=== PATIENT | female | born 1935 | race Caucasian/White ===

== ENCOUNTER 2018-02-23 10:27 | Observation (INO) ==
--- NOTE | 2018-02-23 10:51 | ED ---
HPI General Chief Complaint: Fall Stated Complaint: Fall Time Seen by Provider: 02/23/18 10:39 Source: patient and EMS Mode of arrival: EMS Limitations: no limitations History of Present Illness MD complaint: Reports fall Onset (ago): day(s) (1) Fall from: standing Fall witnessed: no Place fall occurred: home Loss of consciousness: none Prolonged down time: yes Symptoms prior to fall: Reports none Context: Reports tripped/slipped Location of injury: Reports buttocks (Tailbone) Severity: mild Quality: Reports dull Associated symptoms (after fall): Reports other Related Data Allergies Allergy/AdvReac Type Severity Reaction Status Date / Time azithromycin Allergy Severe throat Verified 02/23/18 16:02 closed ketorolac Allergy Severe Anaphylaxis Verified 02/23/18 16:02 lorazepam Allergy Severe Anaphylaxis Verified 02/23/18 16:02 erythromycin base Allergy Unknown Anaphylaxis Verified 02/23/18 16:02 Review of Systems ROS: all other systems reviewed are negative [facility] Social History Social History Substance History: No History of Abuse Second Hand Smoke Exposure: No Smoking Status: Former smoker How Often Do You Have a Drink Containing Alcohol: Never Recent Travel in [facility] within the Last 8 Weeks: No Recent Out of Country Travel within the Last 8 Weeks: No Exam Const General: cooperative, healthy appearing, comfortable, no acute distress and well developed Orientation: alert, awake and oriented x3 Eyes Alignment and Position: alignment normal and position abnormal Conjunctivae: conjunctivae normal Sclera: sclerae normal EOM: EOM intact bilaterally Neck Neck: normal visual inspection and full ROM Chest Chest: normal inspection of the chest Resp Effort & Inspection: normal respiratory effort and able to speak in complete sentences Auscultation: clear to auscultation bilaterally Cardio Rate: regular rate Rhythm: regular rhythm GI Inspection: normal to inspection Palpation: soft Back/Spine/Pelvis Cervical Spine: cervical ROM normal Thoracic/Lumbar Spine: thoraco-lumbar ROM normal Skin General: no rashes or lesions noted, turgor normal and dry skin Neuro General: alert, awake, oriented x3, moves all extremities and CN's II-XI intact bilaterally Extrem General: normal to inspection and full ROM Psych Appearance: grossly normal Mental Status: mental status grossly normal Speech and Movement: speech and movement normal Mood: congruent mood Affect: normal affect Attitude: cooperative Thought Process: normal Thought Content: normal Judgment: judgment good Course Initial Documented Vital Signs Temperature 97.9 F 02/23/18 10:57 Pulse Rate 72 02/23/18 10:57 Respiratory Rate 14 02/23/18 10:57 Blood Pressure 149/82 H 02/23/18 10:57 Pulse Oximetry 94 L 02/23/18 10:57 Last Documented Vital Signs Temperature 97.9 F 02/23/18 10:57 Pulse Rate 72 02/23/18 10:57 Respiratory Rate 14 02/23/18 10:57 Blood Pressure 149/82 H 02/23/18 10:57 Pulse Oximetry 94 L 02/23/18 10:57 Medical Decision Making MDM Narrative Medical decision making narrative: This patient presents to [facility] post a trip and fall at home yesterday. She landed on her buttocks and comes in complaining with tailbone pain. The patient reports a prolonged downtime of several hours yesterday. She states that she has been too weak to walk since then. EKG, chest x-ray, coccyx x-ray and basic labs including urinalysis and CK to rule out rhabdo have been ordered. This patient will likely need admission in order to be placed in rehab as she lives at home alone and is reportedly too weak to walk. CBC is unremarkable. CMP is unremarkable for any acute abnormalities. CPK and troponin are unremarkable. Chest x-ray is negative. Coccyx x-ray is negative. CT of the pelvis is negative for any acute abnormalities or fracture. Patient reassessed, most of her pain is located to her right buttock/hip. She is unable to ambulate due to weakness in her legs and pain in the hip. She will need to be kept in observation for physical therapy consult. She may need placement to a SNF.. I spoke with Dr. Armstrong [facility] who accepts patient to his service. Medical Screen Exam Complete: Yes Emergency Medical Condition: Yes Differential Diagnosis Differential Diagnosis: Differential diagnosis of back injury includes but is not limited to contusion, muscle strain, ligamentous strain, compression fracture, spinous process fracture Lab Data Result diagrams: 02/23/18 11:10 02/23/18 11:10 Lab Results 02/23/18 02/23/18 02/23/18 Range/Units 11:10 11:10 11:10 WBC 8.2 (4.0-11.0) th/mm3 RBC 4.34 (4.00-5.30) mil/mm3 Hgb 15.5 H (11.6-15.3) gm/dL Hct 45.0 (35.0-46.0) % MCV 103.8 H (80.0-100.0) fL MCH 35.6 H (27.0-34.0) pg MCHC 34.3 (32.0-36.0) % RDW 13.6 (11.6-17.2) % Plt Count 96 L (150-450) th/mm3 MPV 9.7 (7.0-11.0) fL Prelim Diff (Auto) Slide review pending Neut % (Auto) 58.7 (16.0-70.0) % Lymph % (Auto) 26.0 (9.0-44.0) % [place] % (Auto) 7.9 (0.0-8.0) % Eos % (Auto) 6.4 H (0.0-4.0) % Baso % (Auto) 1.0 (0.0-2.0) % Neut # (Auto) 4.8 (1.8-7.7) th/mm3 Lymph # (Auto) 2.1 (1.0-4.8) th/mm3 [place] # (Auto) 0.7 (0.0-0.9) th/mm3 Eos # (Auto) 0.5 H (0.0-0.4) th/mm3 Baso # (Auto) 0.1 (0.0-0.2) th/mm3 WBC Differential . Diff Scan Auto diff confirmed Differential Comment . Platelet Estimate Low L (Normal) Platelet Morphology Normal (Normal) Ovalocytes 1+ H (None) Sodium 141 (136-145) meq/L Potassium 4.3 (3.5-5.1) meq/L Chloride 107 (98-107) meq/L Carbon Dioxide 30.5 (21.0-32.0) meq/L Anion Gap 4 L (5-15) meq/L BUN 12 (7-18) mg/dL Creatinine 0.60 (0.50-1.00) mg/dL Estimated GFR Greater than 89 (>89) mL/min Random Glucose 108 H (74-106) mg/dL Calcium 8.3 L (8.5-10.1) mg/dL Total Bilirubin 1.6 H (0.2-1.0) mg/dL AST 53 H (15-37) U/L ALT 21 (10-53) U/L Alkaline Phosphatase 116 (45-117) U/L Total Creatine Kinase 52 Cancelled (26-192) U/L Troponin I 0.02 (0.02-0.05) ng/mL Total Protein 7.4 (6.4-8.2) g/dL Albumin 2.7 L (3.4-5.0) g/dL Urine Color (Yellw/Straw) Urine Clarity (Clear) Urine pH (5.0-8.5) Ur Specific [place] (1.002-1.035) Urine Protein (Neg-Trace) mg/dL Urine Glucose (UA) (Negative) mg/dL Urine Ketones (Negative) mg/dL Urine Occult Blood (Negative) Urine Nitrate (Negative) Urine Bilirubin (Negative) Urine Urobilinogen (Less than 2) mg/dL Ur Leukocyte Esterase (Negative) Urine RBC (0-3) /hpf Urine WBC (0-5) /hpf Ur Squamous Epith Cells (0-5) /hpf Micro UA Comment Ur Microscopic Review Urine Culture Comments 02/23/18 Range/Units 14:20 WBC (4.0-11.0) th/mm3 RBC (4.00-5.30) mil/mm3 Hgb (11.6-15.3) gm/dL Hct (35.0-46.0) % MCV (80.0-100.0) fL MCH (27.0-34.0) pg MCHC (32.0-36.0) % RDW (11.6-17.2) % Plt Count (150-450) th/mm3 MPV (7.0-11.0) fL Prelim Diff (Auto) Neut % (Auto) (16.0-70.0) % Lymph % (Auto) (9.0-44.0) % [place] % (Auto) (0.0-8.0) % Eos % (Auto) (0.0-4.0) % Baso % (Auto) (0.0-2.0) % Neut # (Auto) (1.8-7.7) th/mm3 Lymph # (Auto) (1.0-4.8) th/mm3 [place] # (Auto) (0.0-0.9) th/mm3 Eos # (Auto) (0.0-0.4) th/mm3 Baso # (Auto) (0.0-0.2) th/mm3 WBC Differential Diff Scan Differential Comment Platelet Estimate (Normal) Platelet Morphology (Normal) Ovalocytes (None) Sodium (136-145) meq/L Potassium (3.5-5.1) meq/L Chloride (98-107) meq/L Carbon Dioxide (21.0-32.0) meq/L Anion Gap (5-15) meq/L BUN (7-18) mg/dL Creatinine (0.50-1.00) mg/dL Estimated GFR (>89) mL/min Random Glucose (74-106) mg/dL Calcium (8.5-10.1) mg/dL Total Bilirubin (0.2-1.0) mg/dL AST (15-37) U/L ALT (10-53) U/L Alkaline Phosphatase (45-117) U/L Total Creatine Kinase (26-192) U/L Troponin I (0.02-0.05) ng/mL Total Protein (6.4-8.2) g/dL Albumin (3.4-5.0) g/dL Urine Color Lynn (Yellw/Straw) Urine Clarity Hazy H (Clear) Urine pH 6.0 (5.0-8.5) Ur Specific [place] 1.021 (1.002-1.035) Urine Protein Negative (Neg-Trace) mg/dL Urine Glucose (UA) Negative (Negative) mg/dL Urine Ketones Trace H (Negative) mg/dL Urine Occult Blood Small H (Negative) Urine Nitrate Negative (Negative) Urine Bilirubin Negative (Negative) Urine Urobilinogen 2.0 H (Less than 2) mg/dL Ur Leukocyte Esterase Trace H (Negative) Urine RBC 24 H (0-3) /hpf Urine WBC 6 H (0-5) /hpf Ur Squamous Epith Cells 4 (0-5) /hpf Micro UA Comment Culture not ind Ur Microscopic Review Microscopic reviewed Urine Culture Comments Culture not ind Imaging Data Radiologist's impression: Chest X-Ray 02/23/18 10:40 CONCLUSION: The lungs are clear. Coccyx X-Ray 02/23/18 10:40 CONCLUSION: Negative for fracture Pelvis CT 02/23/18 12:40 CONCLUSION: 1. Diverticular disease of the sigmoid without diverticulitis. 2. No acute fracture. Discharge Plan Discharge Disposition Patient Disposition: ED Admit(ED Internal Use Only) Discharge Condition Condition: Stable Discharge Order Discharge Orders: ED Use Only Admit Order (Routine); Ordered 02/23/18 Ordered By: Jody Armstrong Discharge Details Diagnosis: Inability to ambulate due to hip, Weakness, Fall Physicians Team ED Provider: Aleena Skelton ED Midlevel Provider: Jody Armstrong Primary Care Provider: UNKNOWN, Attending Provider: Asa Armstrong Status ED Status: Admitted Observation Patient
[2018-02-23 11:56] LABS: Baso # (Auto) 0.1 th/mm3 (0.0-0.2); Eos # (Auto) 0.5 th/mm3 (0.0-0.4); Eos % (Auto) 6.4 % (0.0-4.0); Hemoglobin 15.5 gm/dL (11.6-15.3); Lymph # (Auto) 2.1 th/mm3 (1.0-4.8); Mean Corpuscular HGB Conc 34.3 % (32.0-36.0); Mean Corpuscular Hemoglobin 35.6 pg (27.0-34.0); Mean Corpuscular Volume 103.8 fL (80.0-100.0); Mean Platelet Volume 9.7 fL (7.0-11.0); Mono # (Auto) 0.7 th/mm3 (0.0-0.9); Mono % (Auto) 7.9 % (0.0-8.0); Neut # (Auto) 4.8 th/mm3 (1.8-7.7); Neut % (Auto) 58.7 % (16.0-70.0); Platelet Count 96 th/mm3 (150-450); Red Blood Count 4.34 mil/mm3 (4.00-5.30); Red Cell Distribution Width 13.6 % (11.6-17.2); White Blood Count 8.2 th/mm3 (4.0-11.0)
--- NOTE | 2018-02-23 12:12 | XR ---
EXAM DATE: 02/23/2018 12:10 PM EST AGE/SEX: 82 years / Female INDICATIONS: Fell yesterday. CLINICAL DATA: This is the patient's initial encounter. Patient reports that signs and symptoms have been present for 2 days and indicates a pain score of 0/10. MEDICAL/SURGICAL HISTORY: None. None. COMPARISON: [facility], CHEST SINGLE AP, 03/22/2012. . FINDINGS: A single AP view of the chest demonstrates the lungs to be symmetrically aerated without evidence of mass, infiltrate or effusion. The cardiomediastinal contours are unremarkable. Osseous structures a re intact. CONCLUSION: The lungs are clear. Electronically signed by: Reyes Hancock MD Board Certified Radiologist 02/23/2018 12:10 PM EST
[2018-02-23 12:13] LABS: Alanine Aminotransferase 21 U/L (10-53); Albumin 2.7 g/dL (3.4-5.0); Anion Gap 4 meq/L (5-15); Aspartate Aminotransferase 53 U/L (15-37); Blood Urea Nitrogen 12 mg/dL (7-18); Calcium 8.3 mg/dL (8.5-10.1); Carbon Dioxide 30.5 meq/L (21.0-32.0); Chloride 107 meq/L (98-107); Glomerular Filtration Rate Greater Than 89 mL/min (>89); Glucose,Random 108 mg/dL (74-106); Potassium 4.3 meq/L (3.5-5.1); Sodium 141 meq/L (136-145)
--- NOTE | 2018-02-23 12:16 | XR ---
EXAM DATE: 02/23/2018 12:12 PM EST AGE/SEX: 82 years / Female INDICATIONS: Fell yesterday. CLINICAL DATA: This is the patient's initial encounter. Patient reports that signs and symptoms have been present for 2 days and indicates a pain score of 10/10. MEDICAL/SURGICAL HISTORY: None. None. COMPARISON: No prior exams available for comparison. FINDINGS: Two view examination of the coccyx demonstrates no evidence of fracture or dislocation. CONCLUSION: Negative for fracture Electronically signed by: Satnam Moon MD Board Certified Radiologist 02/23/2018 12:15 PM EST
[2018-02-23 12:17] LABS: Alkaline Phosphatase 116 U/L (45-117); Total Protein 7.4 g/dL (6.4-8.2); Troponin I 0.02 ng/mL (0.02-0.05)
[2018-02-23 12:23] LABS: Creatine Kinase 52 U/L (26-192)
[2018-02-23 12:35] LABS: Ovalocytes 1+; Platelet Morphology Normal (Normal)
--- NOTE | 2018-02-23 14:28 | CT ---
EXAM DATE: 02/23/2018 1:55 PM EST AGE/SEX: 82 years / Female INDICATIONS: Trauma, fall. CLINICAL DATA: This is the patient's initial encounter. Patient reports that signs and symptoms have been present for 1 day and indicates a pain score of 7/10. MEDICAL/SURGICAL HISTORY: None. None. RADIATION DOSE: 24.07 CTDI (mGy) COMPARISON: No prior exams available for comparison. TECHNIQUE: Multiple contiguous axial images were obtained through the pelvis without contrast. Imag es were obtained using multiple row detector helical technique. . Using automated exposure control an d adjustment of the mA and/or kV according to patient size, radiation dose was kept as low as reasona christopher achievable to obtain optimal diagnostic quality images. DICOM format image data is available konrad ctronically for review and comparison. FINDINGS: Bowel/Mesentery: Diverticular disease of the sigmoid colon without diverticulitis. Bladder: Contours are smooth. Retroperitoneum: No evidence of deep pelvic adenopathy. Reproductive Organs: No abnormal masses or calcifications seen. Inguinal: The inguinal region is unremarkable without evidence of adenopathy. Bony Structures: Unremarkable. CONCLUSION: 1. Diverticular disease of the sigmoid without diverticulitis. 2. No acute fracture. Electronically signed by: Edgar Masters MD Board Certified Radiologist 02/23/2018 2:27 PM EST
[2018-02-23 14:35] LABS: Bilirubin,Urine Negative (Negative); Clarity,Urine Hazy (Clear); Color,Urine Amber (Yellw/Straw); Glucose,Urine (UA) Negative (Negative); Leukocyte Esterase,Urine Trace (Negative); Nitrite,Urine Negative (Negative); Specific Gravity,Urine 1.021 (1.002-1.035); Squamous Epithelial Cell,Urine 4 /hpf (0-5)
[2018-02-23] MEDS ORDERED: Acetaminophen 325 MG Tablet PO PRN (15:09)
--- NOTE | 2018-02-23 15:52 | P.HPIM ---
History of Present Illness Primary Care Physician: UNKNOWN History of Present Illness: This is an 82-year-old female with a history of osteo-arthritis who presents with right sacroiliac joint pain following a fall at home. The fall occurred in her kitchen and she reached back to sit in a rolling chair but ended up pushing the chair back and sitting onto the floor. She underwent imaging studies including a CT of the pelvis and hips which showed no evidence of hip or pelvic fracture. She reports no pain in her lower back and both the ER physicians examined my own have demonstrated no pain with lumbovertebral palpation. She would like to go home but she is unable to walk. She denies any recent fevers, denies urinary symptoms, denies cough. She denies chest pain or palpitations. She denies nausea vomiting or diarrhea. Review of Systems Review of Systems: all other systems reviewed are negative [facility] Social History Social History Substance History: No History of Abuse Second Hand Smoke Exposure: No Smoking Status: Former smoker How Often Do You Have a Drink Containing Alcohol: Never Recent Travel in [facility] within the Last 8 Weeks: No Recent Out of Country Travel within the Last 8 Weeks: No Immunization History Tetanus Immunization: Unsure Medications and Allergies Allergies Allergy/AdvReac Type Severity Reaction Status Date / Time azithromycin Allergy Severe throat Unverified 10/01/16 22:25 closed ketorolac Allergy Severe Unverified 10/01/16 22:25 lorazepam Allergy Severe Unverified 10/01/16 22:25 erythromycin base Allergy Unknown Unverified 10/01/16 22:25 Active Medications: Active Medications Acetaminophen (Tylenol) 650 mg PO Q4H PRN PRN Reason: Temp > 100.4 Methylprednisolone Sodium Succinate (Solumedrol Inj) 125 mg IV.PUSH ONCE ONE Stop: 02/23/18 17:01 Ondansetron HCl (Zofran Inj) 4 mg IV.PUSH Q6H PRN PRN Reason: NAUSEA OR VOMITING Sennosides (Senokot) 17.2 mg PO Q12H PRN PRN Reason: Moderate Constipation Sodium Chloride (Ns Flush) 2 ml IV.FLUSH BID YASMIN Sodium Chloride (Ns Flush) 2 ml IV.FLUSH PRN PRN PRN Reason: FLUSH AFTER USING IV ACCESS Physical Exam Vital signs: Last Vital Signs Temp 97.9 F 02/23/18 10:57 Pulse 72 02/23/18 10:57 Resp 14 02/23/18 10:57 BP 149/82 H 02/23/18 10:57 Pulse Ox 94 L 02/23/18 10:57 Intake & Output 02/21/18 02/22/18 02/23/18 02/24/18 06:59 06:59 06:59 06:59 Weight 76.204 kg Narrative: GENERAL: AAOx3, no acute distress, adequate nutrition, generally weak SKIN: Warm and dry, no rashes. HEAD: Atraumatic. Normocephalic. EYES: Pupils equal, round, reactive to light. No scleral icterus. No injection or drainage. ENT: No nasal bleeding or discharge. Moist mucous membranes. Nonerythematous oropharynx. NECK: Trachea midline. No JVD. Thyroid size within normal limits. CARDIOVASCULAR: Regular rate and rhythm. 2/6 systolic ejection murmur, no gallops, no rubs. RESPIRATORY: Clear and equal to auscultation bilaterally. No crackles, no wheezes. No accessory muscle use. GASTROINTESTINAL: Abdomen soft, non-tender, nondistended, normal active bowel sounds. Hepatic and splenic margins not palpable. MUSCULOSKELETAL: Extremities without clubbing or cyanosis. No obvious deformities. No edema., No lumbar tenderness to palpation. Tender right sacroiliac joint. NEUROLOGICAL: Awake and alert. No obvious cranial nerve deficits. Motor grossly within normal limits. No focal deficits. Five out of 5 muscle strength in the arms and legs. Normal speech. PSYCHIATRIC: Appropriate mood and affect; insight and judgment normal. Results Labs CBC & Chem 7: 02/23/18 11:10 02/23/18 11:10 Imaging Impressions Chest X-Ray 02/23/18 10:40 CONCLUSION: The lungs are clear. Coccyx X-Ray 02/23/18 10:40 CONCLUSION: Negative for fracture Pelvis CT 02/23/18 12:40 CONCLUSION: 1. Diverticular disease of the sigmoid without diverticulitis. 2. No acute fracture. Caprini VTE Risk Assessment Caprini VTE Risk Assessment: Moderate/High Risk (score >= 2) Caprini Risk Assessment Model: Point Value = 1 Point Value = 2 Point Value = 3 Point Value = 5 Age 41-60 Minor surgery BMI > 25 kg/m2 Swollen legs Varicose veins or History of unexplained or recurrent spontaneous Oral contraceptives or hormone replacement Sepsis (< 1 month) Serious lung disease, including pneumonia (< 1 month) Abnormal pulmonary function Acute myocardial infarction Congestive heart failure (< 1 month) History of inflammatory bowel disease Medical patient at bed rest Age 61-74 Arthroscopic surgery Major open surgery (> 45 min) Laparoscopic surgery (> 45 min) Malignancy Confined to bed (> 72 hours) Immobilizing plaster cast Central venous access Age >= 75 History of VTE Family history of VTE Factor V Leiden Prothrombin [id number] Lupus anticoagulant Anticardiolipin antibodies Elevated serum homocysteine Heparin-induced thrombocytopenia Other congenital or acquired thrombophilia Stroke (< 1 month) Elective arthroplasty Hip, pelvis, or leg fracture Acute spinal cord injury (< 1 month) Prophylaxis Regimen: Total Risk Factor Score Risk Level Prophylaxis Regimen 0-1 Low Early ambulation 2 Moderate Order ONE of the following: *Sequential Compression Device (SCD) *Heparin 5000 units SQ BID 3-4 Higher Order ONE of the following medications: *Heparin 5000 units SQ TID *Enoxaparin/Lovenox 40 mg SQ daily (WT < 150 kg, CrCl > 30 mL/min) *Enoxaparin/Lovenox 30 mg SQ daily (WT < 150 kg, CrCl > 10-29 mL/min) *Enoxaparin/Lovenox 30 mg SQ BID (WT < 150 kg, CrCl > 30 mL/min) AND/OR *Sequential Compression Device (SCD) 5 or more Highest Order ONE of the following medications: *Heparin 5000 units SQ TID (Preferred with Epidurals) *Enoxaparin/Lovenox 40 mg SQ daily (WT < 150 kg, CrCl > 30 mL/min) *Enoxaparin/Lovenox 30 mg SQ daily (WT < 150 kg, CrCl > 10-29 mL/min) *Enoxaparin/Lovenox 30 mg SQ BID (WT < 150 kg, CrCl > 30 mL/min) AND *Sequential Compression Device (SCD) Assessment and Plan Plan Fall at home, sacroiliitis, nonambulatory Fortunately no fractures on her hip or pelvis She is still unable to ambulate due to inflammation in her right sacroiliac joint Give single dose of Solu-Medrol 125 mg x1 Reevaluate in the a.m., physical therapy consulted to assist with ambulation and evaluation DVT prophylaxis SCDs overnight
[2018-02-23] MEDS ORDERED: MethylPREDNISolone Sod Succinate Inj 125 MG/2 ML Vial IV.PUSH ONE (17:00)
[2018-02-24 07:38] LABS: Baso % (Auto) 0.2 % (0.0-2.0); Lymph # (Auto) 1.4 th/mm3 (1.0-4.8); Lymph % (Auto) 23.4 % (9.0-44.0); Mean Corpuscular HGB Conc 34.8 % (32.0-36.0); Mean Corpuscular Hemoglobin 35.4 pg (27.0-34.0); Mean Platelet Volume 9.9 fL (7.0-11.0); Mono # (Auto) 0.1 th/mm3 (0.0-0.9); Mono % (Auto) 2.2 % (0.0-8.0); Neut # (Auto) 4.3 th/mm3 (1.8-7.7); Neut % (Auto) 74.2 % (16.0-70.0); Platelet Count 81 th/mm3 (150-450); Red Blood Count 4.51 mil/mm3 (4.00-5.30); Red Cell Distribution Width 13.5 % (11.6-17.2); White Blood Count 5.8 th/mm3 (4.0-11.0)
[2018-02-24 07:59] LABS: Anion Gap 8 meq/L (5-15); Blood Urea Nitrogen 14 mg/dL (7-18); Calcium 8.6 mg/dL (8.5-10.1); Carbon Dioxide 25.6 meq/L (21.0-32.0); Chloride 107 meq/L (98-107); Glomerular Filtration Rate Greater Than 89 mL/min (>89); Glucose,Random 139 mg/dL (74-106); Potassium 3.7 meq/L (3.5-5.1); Sodium 141 meq/L (136-145)
--- NOTE | 2018-02-24 10:05 | P.PN ---
Subjective Interval history: Follow up for back pain, s/p fall. Patient seen and examined, complains of low back pain. Indicates that the pain is much better, has not been out of bed yet. Denies any chest pain, no shortness of breath. No fever. Indicates that her daughter is coming from [place] to help her, she is a nurse. Physical Exam Vital signs: Vital Signs 02/23/18 10:57 02/23/18 14:00 02/23/18 17:37 Temperature 97.9 F Pulse Rate 72 87 78 Respiratory Rate 14 16 16 Blood Pressure 149/82 H 151/83 H 137/84 Pulse Oximetry 94 L 99 02/23/18 19:54 02/23/18 23:27 02/24/18 03:29 Temperature 97.4 F L 97.6 F 98.1 F Pulse Rate 84 80 84 Respiratory Rate 22 22 20 Blood Pressure 125/83 122/75 118/76 Pulse Oximetry 92 L 92 L 92 L 02/24/18 07:34 02/24/18 07:44 Temperature 98.4 F Pulse Rate 90 Respiratory Rate 20 Blood Pressure 133/76 Pulse Oximetry 92 L 94 L Intake & Output 02/23/18 02/24/18 02/24/18 18:59 06:59 18:59 Intake Total 480 / 480 Output Total 800 / 800 Balance -320 / -320 Weight 76.204 kg Intake: Oral 480 / 480 Output: Urine 800 / 800 Other: # Voids 1 Date of Last Bowel Movement 02/24/18 # Bowel Movements 1 Narrative: GENERAL: AAOx3, no acute distress, adequate nutrition, generally weak SKIN: Warm and dry, no rashes. HEAD: Atraumatic. Normocephalic. EYES: Pupils equal, round, reactive to light. No scleral icterus. No injection or drainage. ENT: No nasal bleeding or discharge. Moist mucous membranes. Nonerythematous oropharynx. NECK: Trachea midline. No JVD. Thyroid size within normal limits. CARDIOVASCULAR: Regular rate and rhythm. 2/6 systolic ejection murmur, no gallops, no rubs. RESPIRATORY: Clear and equal to auscultation bilaterally. No crackles, no wheezes. No accessory muscle use. GASTROINTESTINAL: Abdomen soft, non-tender, nondistended, normal active bowel sounds. Hepatic and splenic margins not palpable. MUSCULOSKELETAL: Extremities without clubbing or cyanosis. No obvious deformities. No edema., No lumbar tenderness to palpation. Tender right sacroiliac joint. NEUROLOGICAL: Awake and alert. No obvious cranial nerve deficits. Motor grossly within normal limits. No focal deficits. Five out of 5 muscle strength in the arms and legs. Normal speech. PSYCHIATRIC: Appropriate mood and affect; insight and judgment normal. Results - Labs CBC & Chem 7: 02/24/18 05:35 02/24/18 05:35 Laboratory Results - last 24 hr 02/23/18 02/23/18 02/23/18 11:10 11:10 11:10 WBC 8.2 RBC 4.34 Hgb 15.5 H Hct 45.0 MCV 103.8 H MCH 35.6 H MCHC 34.3 RDW 13.6 Plt Count 96 L MPV 9.7 Prelim Diff (Auto) Slide review pending Neut % (Auto) 58.7 Lymph % (Auto) 26.0 Armstrong % (Auto) 7.9 Eos % (Auto) 6.4 H Baso % (Auto) 1.0 Neut # (Auto) 4.8 Lymph # (Auto) 2.1 Armstrong # (Auto) 0.7 Eos # (Auto) 0.5 H Baso # (Auto) 0.1 WBC Differential . Diff Scan Auto diff confirmed Differential Comment . Platelet Estimate Low L Platelet Morphology Normal Ovalocytes 1+ H Sodium 141 Potassium 4.3 Chloride 107 Carbon Dioxide 30.5 Anion Gap 4 L BUN 12 Creatinine 0.60 Estimated GFR Greater than 89 Random Glucose 108 H Calcium 8.3 L Total Bilirubin 1.6 H AST 53 H ALT 21 Alkaline Phosphatase 116 Total Creatine Kinase 52 Cancelled Troponin I 0.02 Total Protein 7.4 Albumin 2.7 L Urine Color Urine Clarity Urine pH Ur Specific Dubois Urine Protein Urine Glucose (UA) Urine Ketones Urine Occult Blood Urine Nitrate Urine Bilirubin Urine Urobilinogen Ur Leukocyte Esterase Urine RBC Urine WBC Ur Squamous Epith Cells Micro UA Comment Ur Microscopic Review Urine Culture Comments 02/23/18 02/24/18 02/24/18 14:20 05:35 05:35 WBC 5.8 RBC 4.51 Hgb 16.0 H Hct 46.0 MCV 102.0 H MCH 35.4 H MCHC 34.8 RDW 13.5 Plt Count 81 L MPV 9.9 Prelim Diff (Auto) Slide review pending Neut % (Auto) 74.2 H Lymph % (Auto) 23.4 Armstrong % (Auto) 2.2 Eos % (Auto) 0.0 Baso % (Auto) 0.2 Neut # (Auto) 4.3 Lymph # (Auto) 1.4 Armstrong # (Auto) 0.1 Eos # (Auto) 0.0 Baso # (Auto) 0.0 WBC Differential . Diff Scan Auto diff confirmed Differential Comment . Platelet Estimate Platelet Morphology Ovalocytes Sodium 141 Potassium 3.7 Chloride 107 Carbon Dioxide 25.6 Anion Gap 8 BUN 14 Creatinine 0.38 L Estimated GFR Greater than 89 Random Glucose 139 H Calcium 8.6 Total Bilirubin AST ALT Alkaline Phosphatase Total Creatine Kinase Troponin I Total Protein Albumin Urine Color Lynn Urine Clarity Hazy H Urine pH 6.0 Ur Specific Dubois 1.021 Urine Protein Negative Urine Glucose (UA) Negative Urine Ketones Trace H Urine Occult Blood Small H Urine Nitrate Negative Urine Bilirubin Negative Urine Urobilinogen 2.0 H Ur Leukocyte Esterase Trace H Urine RBC 24 H Urine WBC 6 H Ur Squamous Epith Cells 4 Micro UA Comment Culture not ind Ur Microscopic Review Microscopic reviewed Urine Culture Comments Culture not ind - Imaging Impressions Chest X-Ray 02/23/18 10:40 CONCLUSION: The lungs are clear. Coccyx X-Ray 02/23/18 10:40 CONCLUSION: Negative for fracture Pelvis CT 02/23/18 12:40 CONCLUSION: 1. Diverticular disease of the sigmoid without diverticulitis. 2. No acute fracture. Assessment and Plan - Plan 82-year-old female with a history of osteo-arthritis who presents with right sacroiliac joint pain following a fall at home. CT done, no evidence of fracture. Has not been able to ambulate. Fall at home, sacroiliitis, nonambulatory No evidence of fractures on her hips or pelvis Was given single dose of Solu-Medrol 125 mg IV x1 -Consult physical therapy for evaluation -Continue with pain management -Resume gabapentin DVT prophylaxis-SCDs overnight Case management consultation for discharge planning, arrange home health care with PT We will follow-up on PT evaluation, possible discharge later today or tomorrow Code Status: Full code Discussed Condition With: RN, pt, CM Discharge Planning: Poss home with [facility] today or tomorrow PT recommends short term rehab, pt. wants to go home with . D/W daughter at [facility], she is a nurse and is staying with parents to help. Ok to dc home with HHC/P F/U PCP in one week Fall precautions
[2018-02-24] MEDS ORDERED: Gabapentin 100 MG Capsule PO SCH (13:00)
--- NOTE | 2018-02-24 13:13 | P.DCO ---
- Diagnosis (1) Inability to ambulate due to hip Status: Acute (2) Weakness Status: Acute (3) Fall Status: Acute - Physical Therapy Order: Evaluate and treat - Home Health Nursing Order: Medical education, Nursing assessment with vital signs - Case Management Consult Case Management Consult-Home Health: Yes - Certification I have seen patient Susan Butts on 02/24/18. My clinical findings support the need for the requested home health care services because: pt. debilitated, high risk for falls Deconditioned with increased weakness, Limited ability to care for self, Need for psychosocial assistance, High risk of falls I certify that my clinical findings support that this patient is homebound because: debilitated, s/p fall Unsteady gait/balance (3) Fall Qualifiers: Encounter type: initial encounter Qualified Code(s): W19.XXXA - Unspecified fall, initial encounter
--- NOTE | 2018-02-25 00:41 | ECG ---
Date Performed: 02/23/2018 Time Performed: 12:26:42 PTAGE: 82 years EKG: Sinus rhythm MARKED LEFT AXIS DEVIATION LEFT BUNDLE BRANCH BLOCK ABNORMAL ECG PREVIOUS TRACING : 03/26/2012 17.16 Compared to previous tracing, now notable left bundle bran ch block DOCTOR: Rojelio Riggs Interpretating Date/Time 02/25/2018 00:40:33
== END 2018-02-24 15:09 | disposition home health service (06) ==
LOC: NEDA 10:27 → NEPD 10:27 → NEDA 17:41 → NEPGCP 17:49
PROVIDERS: ADMIT Hospitalist; ATTEND Hospitalist
CPT/HCPCS: 71010; 71045; 72192; 72220; 80048; 80053; 81001; 82550; 84484; 85025; 93005; 96374; 97162; 99285; G0378; G8987; G8988; J2930; P9612